=== PATIENT | male | born 2000 | race Caucasian/White ===

== ENCOUNTER → 2018-02-08 | Emergency (ER) | payer OTHER, MEDICAID ==
[2018-02-08] MEDS: morphine 4 MG/ML VIAL IM (07:13)
[2018-02-08] MEDS: ONDANSETRON (ODT) 4 MG TAB ODT (07:13)
== END | disposition home or self-care (01) ==
LOC: E/R 06:53
DX: S43.402A Unspecified sprain of left shoulder joint, initial encounter (principal); S13.4XXA Sprain of ligaments of cervical spine, initial encounter; S93.401A Sprain of unspecified ligament of right ankle, initial encounter; F17.210 Nicotine dependence, cigarettes, uncomplicated; V49.49XA Driver injured in collision with other motor vehicles in traffic accident, initial encounter
CPT/HCPCS: 71045; 72040; 73030; 73610-RT; 96372; 99284-25